=== PATIENT | female | born 1975 | race Caucasian/White ===

== ENCOUNTER → 2018-12-11 11:19 | Outpatient (CLI) | payer BC, SELFPAY ==
--- NOTE | 2018-12-11 11:25 | XR_ITS ---
XR foot RT min 3V HISTORY: Pain ITS.REASON: RT FOOT BUNION ORDERING PHYSICIAN: Tobi Lechuga MD PATIENT AGE: 43 years COMPARISON: None FINDINGS: There is mild hallux valgus with mild soft tissue swelling along the distal aspect of the first metatarsal medially. No fracture or dislocation. No lytic or blastic change. IMPRESSION: Mild hallux valgus with early bunion formation
== END ==
PROVIDERS: PCP Family Medicine; Visit Provider Family Medicine
DX: M21.611 Bunion of right foot (principal)
CPT/HCPCS: 73630

== ENCOUNTER → 2019-08-21 09:35 | Outpatient (CLI) | payer BC, SELFPAY ==
--- NOTE | 2019-08-21 09:42 | XR_ITS ---
PROCEDURE: XR CHEST 2V CLINICAL HISTORY: COUGH COMPARISON: No exams were available for comparison FINDINGS: The cardiomediastinal silhouette and pulmonary vascularity are within normal limits. There are mild atelectatic changes in the right middle lobe and lingula. Upper lobes are clear No acute bony abnormalities. IMPRESSION: Atelectatic changes otherwise negative Dictated by: Phillip Caraballo MD 08/21/2019 11:30 Electronically signed by Phillip Caraballo MD in [place] 08/21/2019 11:30
== END ==
PROVIDERS: Visit Provider Family Medicine
DX: R05 Cough (principal)
CPT/HCPCS: 71046; 87070; 87205

== ENCOUNTER → 2020-05-03 10:42 | Outpatient (CLI) | payer BC, SELFPAY ==
[2020-05-03 11:38] LABS: Basophils % 0.5 % (0.1-2.0); Eosinophils % 0.4 % (0.1-12.0); Hematocrit 40.5 % (37.0-47.0); Hemoglobin 13.1 g/dL (12.2-16.2); Lymphocytes # 0.7 K/mm3 (0.7-4.5); Lymphocytes % 10.1 % (10-50); Mean Corpuscular HGB Conc 32.3 g/dL (31.8-35.4); Mean Corpuscular Hemoglobin 26.5 pg (27.0-31.2); Mean Platelet Volume 7.7 fl (7.4-10.4); Monocytes # 0.4 K/mm3 (0.1-1.0); Monocytes % 6.1 % (1.7-9.3); Neutrophils # 5.5 K/mm3 (1.8-7.8); Platelet Count 271 K/mm3 (142-424); Red Blood Count 4.94 M/mm3 (4.20-5.40); Red Cell Distribution Width 17.1 % (11.5-17.5); White Blood Count 6.6 K/mm3 (4.8-10.8)
[2020-05-04 13:23] LABS: Covid-19 Nasal PCR Sendout Lex NOT DETECTED
== END ==
PROVIDERS: PCP Family Medicine; Visit Provider Family Medicine
DX: Z03.818 Encounter for observation for suspected exposure to other biological agents ruled out (principal)
CPT/HCPCS: 36415; 85025; U0004

== ENCOUNTER → 2021-01-31 08:01 | Outpatient (CLI) | payer BC, SELFPAY ==
[2021-01-31 08:24] LABS: Basophils # 0.1 K/mm3 (0-0.2); Basophils % 0.9 % (0.1-2.0); Eosinophils # 0.2 K/mm3 (0.0-0.4); Eosinophils % 2.6 % (0.1-12.0); Hematocrit 40.5 % (37.0-47.0); Hemoglobin 12.8 g/dL (12.2-16.2); Lymphocytes # 1.6 K/mm3 (0.7-4.5); Lymphocytes % 27.1 % (10-50); Mean Corpuscular HGB Conc 31.5 g/dL (31.8-35.4); Mean Corpuscular Hemoglobin 27.7 pg (27.0-31.2); Mean Corpuscular Volume 87.8 fl (81-99); Mean Platelet Volume 8.1 fl (7.4-10.4); Monocytes # 0.4 K/mm3 (0.1-1.0); Monocytes % 6.1 % (1.7-9.3); Neutrophils # 3.7 K/mm3 (1.8-7.8); Neutrophils % 63.3 % (37.0-80.0); Platelet Count 381 K/mm3 (142-424); Red Blood Count 4.62 M/mm3 (4.20-5.40); White Blood Count 5.8 K/mm3 (4.8-10.8)
[2021-01-31 08:56] LABS: Alanine Aminotransferase 17 U/L (12-78); Albumin Level 4.2 g/dl (3.5-5.0); Albumin/Globulin Ratio 1.6 (1.1-1.8); Alkaline Phosphatase 112 U/L (38-126); Anion Gap 12.2 mEq/L (5-15); Aspartate Amino Transferase 26 U/L (14-36); Bilirubin,Total 0.4 mg/dl (0.2-1.3); Blood Urea Nitrogen 12 mg/dl (7-17); Calcium 9.5 mg/dl (8.4-10.2); Carbon Dioxide 28 mmol/L (22.0-30.0); Chloride 102 mmol/L (98-107); Chol/HDL Ratio 3.6 (1-3.5); Cholesterol 215 mg/dl (140-200); Estimated Glomerular Filt Rate 108 ml/min (>60); GFR (African American) 130 ML/MIN (>60); Globulin 2.7 g/dL (1.3-3.2); Glucose 98 mg/dl (74-100); HDL Cholesterol 59 mg/dl (40-60); Potassium 4.2 mmoL/L (3.5-5.1); Sodium 138 mmol/L (136-145); Total Protein,Serum 6.9 g/dl (6.3-8.2); Triglycerides 77 mg/dl (30-150); VLDL Cholesterol 15 mg/dL (0-40)
[2021-01-31 09:06] LABS: Direct LDL Cholesterol 144.09 mg/dL (100-129)
[2021-01-31 09:12] LABS: 25-OH Vitamin D, Total 14.2 ng/mL (30-100)
[2021-01-31 09:25] LABS: Thyroid Stimulating Hormone 1.19 uIU/mL (0.465-4.68)
[2021-01-31 09:43] LABS: Vitamin B12 175 pg/mL (239-931)
[2021-01-31 09:54] LABS: Iron 104 ug/dL (37-170)
== END ==
PROVIDERS: Visit Provider Family Medicine
DX: F32.9 Major depressive disorder, single episode, unspecified (principal); R25.3 Fasciculation; E55.9 Vitamin D deficiency, unspecified
CPT/HCPCS: 36415; 80053; 80061; 82306; 82607; 83540; 84443; 85025

== ENCOUNTER → 2021-04-21 10:55 | Outpatient (CLI) | payer BC, SELFPAY | PROVIDERS: PCP Family Medicine; Visit Provider Nurse Practitioner | DX: Z20.822 Contact with and (suspected) exposure to COVID-19 (principal) | CPT/HCPCS: C9803; U0003; U0005 ==

== ENCOUNTER → 2021-06-07 10:50 | Outpatient (CLI) | payer BC, SELFPAY ==
[2021-06-07 11:19] LABS: Influenza A, PCR Not Detected (NotDetected); Influenza B, PCR Not Detected (NotDetected)
[2021-06-07 11:38] LABS: Basophils # 0.1 K/mm3 (0-0.2); Basophils % 1.9 % (0.1-2.0); Eosinophils % 0.7 % (0.1-12.0); Hematocrit 39.4 % (37.0-47.0); Hemoglobin 12.8 g/dL (12.2-16.2); Lymphocytes # 0.8 K/mm3 (0.7-4.5); Lymphocytes % 14.6 % (10-50); Mean Corpuscular HGB Conc 32.4 g/dL (31.8-35.4); Mean Corpuscular Hemoglobin 27.3 pg (27.0-31.2); Mean Corpuscular Volume 84.3 fl (81-99); Mean Platelet Volume 7.3 fl (7.4-10.4); Monocytes # 0.3 K/mm3 (0.1-1.0); Monocytes % 4.8 % (1.7-9.3); Neutrophils % 77.9 % (37.0-80.0); Platelet Count 337 K/mm3 (142-424); Red Blood Count 4.68 M/mm3 (4.20-5.40); Red Cell Distribution Width 13.7 % (11.5-17.5); White Blood Count 5.2 K/mm3 (4.8-10.8)
[2021-06-07 12:39] LABS: Coronavirus 19, PCR Detected (NotDetected)
== END ==
PROVIDERS: PCP Nurse Practitioner; Visit Provider Nurse Practitioner
DX: U07.1 COVID-19 (principal); J06.9 Acute upper respiratory infection, unspecified
CPT/HCPCS: 36415; 85025; C9803; U0003; U0005

== ENCOUNTER → 2023-01-06 08:08 | Outpatient (CLI) | payer BC, SELFPAY ==
[2023-01-06 10:06] LABS: Hemoglobin A1C 5.7 % (4.0-6.0)
== END ==
PROVIDERS: PCP Family Medicine; Visit Provider Family Medicine
DX: R73.9 Hyperglycemia, unspecified (principal)
CPT/HCPCS: 36415; 83036

== ENCOUNTER 2023-01-06 09:35 | Emergency (ER) | payer BC, SELFPAY ==
[2023-01-06] VITALS (7 sets, daily range): BP systolic 97–126; BP diastolic 70–90; PULSE 79–101; RESP 16–20; TEMP 36.5; O2SAT 99–100; BMI 22.4
--- NOTE | 2023-01-06 09:45 | PC.NURSE ---
Dr Duckworth at bedside.
[2023-01-06 09:51] LABS: POC Glucose,Bedside 416 (70-110)
--- NOTE | 2023-01-06 09:58 | HMH.EDGENADL ---
Discharge Plan Disposition Patient Disposition: Home, Self-Care Referrals Follow up/Referrals: Odell Fisher MD [Primary Care Provider] - See instructions Activity Restrictions/Add. Instructions Additional Instructions/Restrictions: Your hemoglobin A1c was only 5.7 however you met 2 other diagnostic criteria for diabetes including your history with associated symptoms and random blood sugar greater than 200, as well as the results today from your glucose tolerance test with a blood sugar greater than 400. With your rapid fluctuations in your hyperglycemia and hypoglycemia episodes I would strongly recommend you closely follow-up with an stapler coil unit as it could be dangerous initiating medications without close monitoring. Please stay well-hydrated make sure you are eating foods with significant fiber regarding the glycemic index that we discussed with food absorption. Return with any significant worsening of your symptoms. Clinical Impressions Clinical Impression: Newly diagnosed diabetes, Acute dehydration, Nausea & vomiting Instructions Patient Instructions: DI for Diarrhea and Traveler's Diarrhea -- Adult, DI for Diarrhea and Traveler's Diarrhea -- Child, DI for Nausea -- Adult, DI for Nausea -- Child Discharge ED Provider: Sabino Duckworth General Adult HPI General Chief complaint: Nausea/Vomiting/Diarrhea Stated complaint: failed glucose test Time Seen by Provider: 01/06/23 09:40 Mode of Arrival: Ambulatory Source of Information: Patient Limitations: No Limitations Description of Symptoms (Recalled from ER Triage Doc. by RN): 47 yo F presents to ED with c/o shakiness, chills. pt was having a glucose test done this am. [facility] to [facility], 1 episode of emesis. pt undergoing testing osorio diabetes by her pcp. History of Present Illness HPI narrative: Patient is a 47-year-old female who is status post Naz-en-Y gastric bypass surgery many years ago who has a history of insulin resistance was on metformin in the past who presents today with nausea vomiting elevated glucose following glucose tolerance test. She states for the last 3 to 4 months she has been extremely fatigued has had polyuria and polydipsia and has had many random blood sugars well over 200 often in the 300s. She is lost a significant amount of weight. She is not on any oral hypoglycemic agents and is not on insulin at the moment. She states after her oral glucose tolerance test today she began feeling so poorly she wanted to come to the emergency department. Related Data Allergies Allergy/AdvReac Type Severity Reaction Status Date / Time erythromycin base Allergy Mild Verified 01/06/23 10:01 [ERYTHROMYCIN BASE] [facility] Disclaimer: The information contained in this section may have been updated after the patient was seen, as this information can be updated by other users. Social History Smoking Status: Never smoker alcohol intake: never current occupational status: other Travel in the last 8 weeks: None ROS Obtained: Yes All systems reviewed & no additional complaints except as documented Physical Exam General General appearance: alert Respiratory Respiratory exam: Present normal lung sounds bilaterally Cardiovascular Cardiovascular exam: Present regular rate; Absent tachycardia Neurological Exam Neurological exam: Present alert and oriented X3 Medical Decision Making Rc Inquiry Pt receiving controlled substance: No Vital Signs: 01/06/23 09:47 01/06/23 10:00 01/06/23 10:30 Temperature 97.7 F Temperature Source Oral Pulse Rate 87 Pulse Rate [Left] 101 H Respiratory Rate 16 20 Blood Pressure 107/71 L 97/71 L Blood Pressure [Right Arm] 124/83 Blood Pressure Mean 83 79 Blood Pressure Mean [Right Arm] 96 02 Sat by Pulse Oximetry 100 99 Oxygen Delivery Method 01/06/23 11:00 01/06/23 11:30 Temperature Temperature Source Pulse Rate 85 87 Pulse Rate [Left]
[2023-01-06 10:05] LABS: VBG Base Excess -2.3 mmol/L (-2.4-2.3); VBG HCO3 23.7 mmol/L (23-30); VBG Oxygen Saturation 79.5 % (50-70); VBG PCO2 46.9 mmol/L (35-51); VBG PH 7.32 mmol/L (7.31-7.41); VBG PO2 47.4 mmol/L (28-40); VBG Total CO2 25.2 mmol/L (23-27)
--- NOTE | 2023-01-06 10:09 | PC.NURSE ---
Lab called to verify order on pt's A1C as she had it completed today @ 0816 and it was 5.7. Dr. Duckworth stated it was ok to cancel his A1C ordered.
--- NOTE | 2023-01-06 10:13 | PC.NURSE ---
Lab notified to use urine sample previous obtained this morning @ 0800 for UA.
[2023-01-06 10:14] LABS: Basophils % 0.5 % (0.1-2.0); Eosinophils # 0.1 K/mm3 (0.0-0.4); Eosinophils % 2.1 % (0.1-12.0); Hematocrit 37.8 % (37.0-47.0); Hemoglobin 12.2 g/dL (12.2-16.2); Lymphocytes # 1.7 K/mm3 (0.7-4.5); Lymphocytes % 27.3 % (10-50); Mean Corpuscular HGB Conc 32.3 g/dL (31.8-35.4); Mean Corpuscular Hemoglobin 25.5 pg (27.0-31.2); Mean Platelet Volume 7.8 fl (7.4-10.4); Monocytes # 0.1 K/mm3 (0.1-1.0); Monocytes % 2.3 % (1.7-9.3); Neutrophils # 4.1 K/mm3 (1.8-7.8); Neutrophils % 67.8 % (37.0-80.0); Platelet Count 378 K/mm3 (142-424); Red Blood Count 4.78 M/mm3 (4.20-5.40); Red Cell Distribution Width 14.7 % (11.5-17.5); White Blood Count 6.1 K/mm3 (4.8-10.8)
[2023-01-06 10:16] LABS: Chloride 102 mmol/L (98-107); Potassium 3.6 mmoL/L (3.5-5.1); Sodium 142 mmol/L (136-145)
[2023-01-06 10:18] LABS: Blood Urea Nitrogen 8 mg/dl (7-17)
[2023-01-06 10:19] LABS: Alanine Aminotransferase 29 U/L (12-78); Albumin/Globulin Ratio 1.5 (1.1-1.8); Alkaline Phosphatase 124 U/L (38-126); Anion Gap 14.6 mEq/L (5-15); Aspartate Amino Transferase 37 U/L (14-36); Bilirubin,Total 0.3 mg/dl (0.2-1.3); Calcium 10.3 mg/dl (8.4-10.2); Carbon Dioxide 29 mmol/L (22.0-30.0); Creatinine Clearance Estimated 73 mL/min (50-200); Estimated Glomerular Filt Rate 77 ml/min (>60); GFR (African American) 93 ML/MIN (>60); Globulin 3.4 g/dL (1.3-3.2); Glucose 366 mg/dl (74-100); Phosphorous 3.1 mg/dl (2.5-4.5); Total Protein,Serum 8.4 g/dl (6.3-8.2)
[2023-01-06 10:20] LABS: Magnesium 1.9 mg/dl (1.6-2.3)
[2023-01-06 10:23] LABS: Appearance,Urine CLEAR (Clear); Bilirubin,Urine Negative (Negative); Blood, Urine Negative (Negative); Color,Urine YELLOW (Yellow); Glucose,Urine (UA) Negative (Negative); Ketones,Urine Negative (Negative); Leukocyte Esterase,Urine Negative (Negative); Microscopic, Urine URINE MICROSCOPIC (MICROSCOPIC); Nitrate,Urine Negative (Negative); PH,Urine 7.5 (5.0-8.5); Protein,Urine Negative (Negative); Specific Gravity, Urine 1.015 (1.005-1.030); Urobilinogen,Urine 0.2 EU/dl (0.2)
--- NOTE | 2023-01-06 10:25 | PC.NURSE ---
Dr Duckworth at bedside.
--- NOTE | 2023-01-06 11:53 | PC.NURSE ---
pt stated she tested her glucose with her personal adina and it was now at 51 relayed info to who is at bs speaking with pt
--- NOTE | 2023-01-06 12:05 | PC.NURSE ---
pt glucose was 72
--- NOTE | 2023-01-06 12:09 | PC.NURSE ---
Glucose checked 72 at this time. Symptom free, pt and MD ok for pt to DC home and fu with peanut blancher
== END 2023-01-06 12:11 | disposition home or self-care (01) ==
PROVIDERS: Emergency Provider Student in an Organized Health Care Education/Training Program; PCP Family Medicine
DX: E11.65 Type 2 diabetes mellitus with hyperglycemia (principal); E86.0 Dehydration; R11.2 Nausea with vomiting, unspecified
CPT/HCPCS: 80053; 81001; 82803; 82962; 83735; 84100; 85025; 96360; 96361; 99285

== ENCOUNTER 2024-01-28 11:23 | Outpatient (CLI) | payer BC, SELFPAY ==
[2024-01-31 16:13] LABS: Levetiracetam (Keppra) 24.3 ug/mL (10.0-40.0)
== END 2024-01-28 23:59 | disposition home or self-care (01) ==
PROVIDERS: PCP Family Medicine; Visit Provider Nurse Practitioner Family
DX: R56.9 Unspecified convulsions (principal)
CPT/HCPCS: 36415; 80177

== ENCOUNTER 2024-08-22 15:26 | Outpatient (CLI) | payer BC, SELFPAY ==
[2024-08-22 15:46] LABS: Basophils % 0.7 % (0.1-2.0); Eosinophils # 0.1 K/mm3 (0.0-0.4); Eosinophils % 1.2 % (0.1-12.0); Hematocrit 35.6 % (37.0-47.0); Hemoglobin 11.4 g/dL (12.2-16.2); Lymphocytes # 1.3 K/mm3 (0.7-4.5); Lymphocytes % 23.5 % (10-50); Mean Corpuscular Hemoglobin 25.7 pg (27.0-31.2); Mean Corpuscular Volume 80.4 fl (81-99); Mean Platelet Volume 8.7 fl (7.4-10.4); Monocytes # 0.6 K/mm3 (0.1-1.0); Monocytes % 10.6 % (1.7-9.3); Neutrophils # 3.5 K/mm3 (1.8-7.8); Neutrophils % 62.8 % (37.0-80.0); Platelet Count 364 K/mm3 (142-424); Red Blood Count 4.43 M/mm3 (4.20-5.40); Red Cell Distribution Width 21.8 % (11.5-17.5); White Blood Count 5.7 K/mm3 (4.8-10.8)
[2024-08-22 16:48] LABS: Albumin Level 4.8 g/dl (3.5-5.0); Chloride 99 mmol/L (98-107); Potassium 4.1 mmoL/L (3.5-5.1); Sodium 133 mmol/L (136-145)
[2024-08-22 16:51] LABS: Alanine Aminotransferase 132 U/L (12-78); Albumin/Globulin Ratio 1.9 (1.1-1.8); Alkaline Phosphatase 83 U/L (38-126); Anion Gap 11.1 mEq/L (5-15); Aspartate Amino Transferase 119 U/L (14-36); Bilirubin,Total 0.6 mg/dl (0.2-1.3); Blood Urea Nitrogen 11 mg/dl (7-17); Calcium 9.3 mg/dl (8.4-10.2); Carbon Dioxide 27 mmol/L (22.0-30.0); Estimated Glomerular Filt Rate 131 ml/min (>60); GFR (African American) 159 ML/MIN (>60); Globulin 2.5 g/dL (1.3-3.2); Glucose 92 mg/dl (74-100); Total Protein,Serum 7.3 g/dl (6.3-8.2)
[2024-08-27 17:14] LABS: Vitamin B1 194.9 nmol/L (66.5-200.0)
== END 2024-08-22 23:59 | disposition home or self-care (01) ==
LOC: LAB 15:27
PROVIDERS: PCP Physician Assistant; Visit Provider Physician Assistant
DX: D61.818 Other pancytopenia (principal); F10.230 Alcohol dependence with withdrawal, uncomplicated
CPT/HCPCS: 36415; 80053; 82746; 83735; 84425; 85025

== ENCOUNTER 2024-09-01 15:29 | Outpatient (CLI) | payer BC, SELFPAY ==
--- NOTE | 2024-09-01 15:33 | MR_ITS ---
PROCEDURE INFORMATION: Exam: MR Lumbar Spine Without Contrast Exam date and time: 09/01/2024 4:23 PM Age: 48 years old Clinical indication: Low back pain; Additional info: Lower back pain affecting left lower extremity TECHNIQUE: Imaging protocol: Magnetic resonance imaging of the lumbar spine without contrast. COMPARISON: No relevant prior studies available. FINDINGS: Bones/joints: Anatomic alignment. No acute fracture seen. Spinal cord: The conus medullaris ends normally. L1-L2: Mild disc bulge and facet arthropathy. No stenoses. L2-L3: Mild to moderate facet arthropathy and ligamentum flavum buckling. No stenoses. L3-L4: Hzwv-uw-mdyuaaqc diffuse disc bulge as well as moderate to marked facet arthropathy and ligamentum flavum buckling. Bilateral facet joint effusions. There is an extracanalicular synovial cyst on the left. Potentially a tiny intracanalicular synovial cyst on the right, image 13 of series 5 though not contributing to focal mass effect. Central spinal canal stenosis is mild. The lateral recesses are narrowed near the L4 nerve roots. Mild bilateral neural foraminal stenoses. L4-L5: Mild disc bulge as well as cmna-so-wtyaxnrc facet arthropathy and ligamentum flavum buckling. Small bilateral facet joint effusions. No significant central spinal canal stenosis. Lateral recess stenoses are mild. Mild left and no significant right neural foraminal stenoses. L5-S1: Mild disc bulge and facet arthropathy. The thecal sac is tapered by prominent epidural fat. No evidence of S1 nerve root impingement. Mild bilateral neural foraminal stenoses. Soft tissues: Unremarkable. IMPRESSION: Lateral recess stenoses at L3-L4 may be called to L4 distribution radiculopathy. Impression.
== END 2024-09-01 23:59 | disposition home or self-care (01) ==
LOC: RAD 15:29
PROVIDERS: PCP Physician Assistant; Visit Provider Physician Assistant
DX: M54.16 Radiculopathy, lumbar region (principal); M48.061 Spinal stenosis, lumbar region without neurogenic claudication; M51.369 Other intervertebral disc degeneration, lumbar region without mention of lumbar back pain or lower extremity pain
CPT/HCPCS: 72148

== ENCOUNTER 2024-09-03 10:16 | Outpatient (POV) | payer BC, SELFPAY ==
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
[2024-09-03 12:42] VITALS: BP 121/87; PULSE 85; RESP 18; O2SAT 97; BMI 21.7
== END 2024-09-03 23:59 | disposition home or self-care (01) ==
PROVIDERS: PCP Physician Assistant; Visit Provider Nurse Practitioner Family
DX: M46.1 Sacroiliitis, not elsewhere classified (principal); M51.369 Other intervertebral disc degeneration, lumbar region without mention of lumbar back pain or lower extremity pain; M54.50 Low back pain, unspecified; F17.210 Nicotine dependence, cigarettes, uncomplicated
CPT/HCPCS: 99202; G0463

== ENCOUNTER 2024-09-30 12:56 | Day surgery (SDC) | payer BC, SELFPAY ==
[2024-09-30 13:08] VITALS: BP 111/72; PULSE 82; RESP 16; TEMP 36.8; O2SAT 99; BMI 23.2
--- NOTE | 2024-09-30 13:15 | P.PCN_ITS ---
Procedure Date: 09/30/24 Time: 13:10 Anesthesiologist:: Bharat Vazquez CRNA Complications:: None Pre-procedure Diagnosis:: Bilateral sacroiliitis Post-procedure Diagnosis:: Same Indications for Procedure:: Patient is a pleasant 49-year-old female who comes our clinic today for bilateral sacroiliac joint injections of cortisone and local anesthetic. Patient describes minimal back pain. However, she reports bilateral leg radicular symptoms in the form of tingling feeling/numbness in both legs to the knee. Difficulty transitioning from sitting to standing. Difficulty with ambulation. She rates her pain 7/10 Procedure Details:: Procedure: Bilateral sacroiliac joint injections under fluoroscopy Informed consent was obtained and the risks and benefits of the procedure were explained to the patient.~ The patient was taken to the procedure room and noninvasive monitors were placed including a noninvasive blood pressure cuff and pulse oximeter.~ The patient was placed prone on the procedure table. Both hips were cleansed using Betadine as a cleansing solution. C-arm fluoroscopy was used to view the right sacroiliac joint.~ The skin and subcutaneous tissues were anesthetized using lidocaine 1.5% and a 25-gauge needle.~ After this, a 22-gauge spinal needle was inserted under fluoroscopic guidance into the inferior aspect of the right sacroiliac joint.~ Omnipaque dye was injected and good spread was seen throughout the joint.~ After this, approximately 5 mL of bupivacaine, 0.25% and Depo-Medrol, 40 mg was incrementally injected into the right sacroiliac joint. We then moved to the left sacroiliac joint.~ The skin and subcutaneous tissues were anesthetized using lidocaine 1.5% and a 25-gauge needle.~ After this, a 22- gauge spinal needle was inserted under fluoroscopic guidance into the inferior aspect of the left sacroiliac joint.~ Omnipaque dye was injected and good spread was seen throughout the joint. After this, approximately 5 mL of bupivacaine, 0.25% and Depo-Medrol, 40 mg was incrementally injected into the left sacroiliac joint.~ The patient tolerated the procedure well with no complications. The patient was observed in the Pain Clinic and then was discharged home neurologically intact. Plan and Disposition:: Patient was discharged without incident.
[2024-09-30] MEDS: BUPIVACAINE 0.25% 10ML INJ 25 MG IJ (13:16)
[2024-09-30] MEDS: DEXAMETHASONE 10MG/ML 1ML VIAL 10 MG (13:16)
[2024-09-30 13:17] VITALS: BP 116/76; PULSE 88; RESP 18; O2SAT 98
[2024-09-30 13:18] VITALS: BP 116/76; PULSE 80; RESP 18; O2SAT 98
[2024-09-30 13:24] VITALS: BP 118/71; PULSE 86; RESP 16; O2SAT 98
== END 2024-09-30 13:24 | disposition home or self-care (01) ==
PROVIDERS: PCP Physician Assistant; Visit Provider Nurse Anesthetist, Certified Registered
DX: M46.1 Sacroiliitis, not elsewhere classified (principal)
CPT/HCPCS: 27096; G0260; J1100

== ENCOUNTER 2024-10-16 13:28 | Outpatient (POV) | payer BC, SELFPAY ==
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
[2024-10-16 15:37] VITALS: BP 120/72; PULSE 99; RESP 14; O2SAT 99; BMI 23.8
== END 2024-10-16 23:59 | disposition home or self-care (01) ==
LOC: SC.PAIN 13:28
PROVIDERS: PCP Family Medicine; Visit Provider Nurse Practitioner Family
DX: M51.369 Other intervertebral disc degeneration, lumbar region without mention of lumbar back pain or lower extremity pain (principal); M54.50 Low back pain, unspecified; M46.1 Sacroiliitis, not elsewhere classified; M54.12 Radiculopathy, cervical region; F17.210 Nicotine dependence, cigarettes, uncomplicated
CPT/HCPCS: 99212; G0463